=== PATIENT | male | born 1960 | race Caucasian/White ===

== ENCOUNTER 2016-05-08 12:24 | Emergency (ER) | payer BC, OTHER ==
[2016-05-08 12:42] VITALS: BP 140/89
--- NOTE | 2016-05-08 13:34 | ERNOTE ---
Medical Problem HPI - General Chief Complaint: Laceration Time Seen by Provider: 05/08/16 12:46 Source: patient Exam Limitations: no limitations - Immun/Allergies/Home Medications Immunizations: IMMUNIZATION HX Immunizations Up to Date Yes History of Influenza Vaccine No Allergies/Adverse Reactions: Allergies No Known Allergies Allergy (Verified 05/08/16 12:42) Home Medications: HOME MEDICATIONS Acetaminophen [Tylenol] 1,000 mg PO Q6H PRN 11/29/14 [Last Taken Unknown] Lidocaine [Lidoderm 5%] 2 patch TP DAILY PRN 11/29/14 [Last Taken Unknown] Meloxicam [Mobic] 15 mg PO BID 11/29/14 [Last Taken Unknown] Sildenafil Citrate [Viagra] 50 mg PO DAILY PRN 11/29/14 [Last Taken Unknown] Valacyclovir HCl [Valtrex] 1,000 mg PO DAILY 11/29/14 [Last Taken Unknown] traMADol HCL [Ultram] 50 mg PO QID PRN 11/29/14 [Last Taken Unknown] Aspirin 81 mg PO DAILY 12/06/14 [Last Taken 12/05/14 81 mg] Amox Tr/Potassium Clavulanate [Augmentin 875-125 Tablet] 875 mg PO Q12H #20 tab 05/08/16 [Last Taken Unknown] - History of Present History Narrative: Patient sustained a dog bite to his right hand yesterday. These were his dogs. They were tangled up and he tried to free them and was accidentally bit right hand. There are his dogs. He is right handed. No N/T/W. Pain mild. No drainage. His dT is UTD, recently updated. No other injuries. Timing: constant Severity: mild Modifying Factors - (Improves): Present: other - none Modifying Factors - (Worsens): Present: other - none Review of Systems - Review of Systems Constitutional: Absent: fever Musculoskeletal: Present: See HPI Skin: Present: See HPI Neurological: Absent: weakness, numbness - Patient's Past Medical History Patient History - Medical: Arthritis, Chronic Pain, Depression, GERD, Rheumatoid Arthritis, Other Patient History - Cardiac/Respiratory: No pertinent hx Patient History - Cancer: No Hx of Cancer Patient History - Surgical Procedures: Colonoscopy, EGD, T & A, Other Patient History - Other: None - Social History Living Situations: spouse Smoking Status: Current every day smoker Have you smoked in the past 12 months: Yes Do you dip or chew tobacco: No Alcohol Use: none Drug Use: marijuana, other - Immunizations Immunizations Up to Date: Yes History of Influenza Vaccine: No Physical Exam - Physical Exam General Appearance: Present: alert, no apparent distress Respiratory: Present: no respiratory distress Cardiovascular/Chest: Present: normal peripheral pulses Extremity Exam: Present: other - 1 cm bite right ulnar aspect of thumb. No clear FB. No clear joint involvement. No evidnece of active infection. No discharge. No evidence of tendon injury. No gross instability. I cannot identify FB Neurological Exam: Present: other - no motor or seosry deficits to the hand Skin Exam: Present: other - 1 cm lac right thumb. Few scattered abrasions left hand, nothing infected or needing closure. ED Progress - Vital Signs Patient's Vital Signs:: I have reviewed the patient's vital signs. Vital Signs: Vital Signs 05/08/16 12:39 Temperature 35.5 C L Pulse Rate 80 Respiratory 14 Rate Blood Pressure 140/89 O2 Sat by Pulse 100 Oximetry - X-Ray X-Ray #1 X-Ray: hand X-ray Comments: I reviewed radiology report. - Progress/Reassessment Chief Complaint: Laceration Progress Note-Subjective: 05/08/16 14:[address] Chavarria. Antibiotics and he will see the patient in the office thursday for a re-check and re-assess possible FB. i discussed this at length with the patient. I disucssed warning signs and reasons to return as well as the need for close f/u. Departure - Departure Clinical Impression: Dog bite Disposition: Home self-care Condition: Stable Instructions: Animal Bite Additional Instructions: Antibiotic as directed. Follow-up with Dr Chavarria from [facility] next Thursday. Call Dr Chavarria's office Today for an appointment time. Return for signs of infection, fever, numbness, tingling, weakness, spreading redness or if your condition worsens or changes in any way. Referrals: Jun Maradiaga DO [Primary Care Provider] - Prescriptions: Amox Tr/Potassium Clavulanate [Augmentin 875-125 Tablet] 875 mg PO Q12H #20 tab
== END 2016-05-08 14:36 | disposition home or self-care (01) ==
LOC: ER 12:24
DX: S61.011A Laceration without foreign body of right thumb without damage to nail, initial encounter (principal); S60.511A Abrasion of right hand, initial encounter; W54.0XXA Bitten by dog, initial encounter; F17.210 Nicotine dependence, cigarettes, uncomplicated; G89.29 Other chronic pain; M06.9 Rheumatoid arthritis, unspecified